=== PATIENT | male | born 1960 | race Caucasian/White ===

== ENCOUNTER 2018-07-31 20:24 | Emergency (ER) | payer OTHER, SELFPAY ==
--- NOTE | 2018-07-31 20:26 | DI.RAD.S_ITS ---
PROCEDURE: XR CHEST 1V INDICATIONS: chest pain TECHNIQUE: One view of the chest was acquired. COMPARISON: [facility], CHEST 1 VIEW, 09/24/2017, 13:28. [facility], CHEST 1 VIEW, 09/24/2017, 12:34. [facility], CHEST FOR PICC PLACEMENT, 09/23/2017, 15:24. [facility], CHEST 1 VIEW, 09/22/2017, 21:52. FINDINGS: Surgical changes and devices: None. Lungs and pleura: No pleural effusions or pneumothorax. Interval decrease in diffuse bilateral perihilar reticular opacities. Mediastinum: Mediastinal contours appear normal. Heart size is normal. Bones and chest wall: Acute lateral left seventh and eighth rib fractures. Overlying soft tissues appear unremarkable. IMPRESSION: #1. Acute lateral left seventh and eighth rib fractures. #2. Interval improvement in diffuse bilateral perihilar reticular opacities, likely representing interval improvement in underlying pulmonary edema. Findings discussed with the ordering provider Dr. Dagoberto Araujo at approximately 9:50 pm on 07/31/[address] Lee. Dictated by: Babak Lee M.D. on 07/31/2018 at 21:48 Approved by: Babak Lee M.D. on 07/31/2018 at 22:07
[2018-07-31 20:31] VITALS: BP 111/68; PULSE 80; RESP 15; TEMP 36.6; O2SAT 98
[2018-07-31 20:49] LABS: Add Manual Diff / Slide Review NO; Basophils Percent Auto 0.9 % (0-2); Eosinophils Percent Auto 0.7 % (2-4); Hematocrit 35.8 % (41-53); Hemoglobin 12.9 g/dL (13.5-17.5); Lymphocytes Percent Auto 19.2 % (25-40); Mean Corpuscular HGB Conc 36.1 % (30-36); Mean Corpuscular Hemoglobin 36.6 PG (26-34); Mean Corpuscular Volume 101.5 fL (80-100); Monocytes Percent Auto 9.1 % (3-14); Neutrophils Absolute Auto 6600 /uL (3000-5900); Neutrophils Percent Auto 70.1 % (50-75); Platelet Count 177 X10^3/uL (150-400); Red Blood Cell Count 3.53 X10^6/uL (4.5-5.9); Red Cell Distribution Width 12.5 % (11.6-14.8); White Blood Cell Count 9.5 X10^3/uL (4.5-11.0)
[2018-07-31 20:55] LABS: INR 1.1 (0.9-1.3); Prothrombin Time 12.2 SECONDS (10.1-12.7)
[2018-07-31 20:58] LABS: PTT Partial Thromboplastin Tim 24 SECONDS (26.4-36.2)
[2018-07-31 21:00] VITALS: BP 95/60; PULSE 78
[2018-07-31 21:01] LABS: Alanine Aminotransferase 17 IU/L (21-72); Albumin 4.1 g/dL (3.5-5.0); Albumin Globulin Ratio 1.7 (1.0-2.8); Alkaline Phosphatase 61 U/L (38-126); Aspartate Aminotransferase 24 IU/L (17-59); BUN Creatinine Ratio 17.7 (6-22); Bilirubin Total 1.2 mg/dL (0.2-1.3); Blood Urea Nitrogen 23 mg/dL (9-20); Calcium 8.8 mg/dL (8.4-10.2); Carbon Dioxide 23 mmol/L (22-32); Chloride 98 mmol/L (98-107); Creatine Kinase 97 U/L (55-170); Estimated Glomerular Filt Rate 56.5 mL/min (>60); Globulin 2.4 g/dL (1.7-4.1); Glucose 112 mg/dL (70-100); HEMOLYSIS < 15 (0-50); Lipase 112 U/L (23-300); Potassium 3.6 mmol/L (3.4-5.1); Sodium 133 mmol/L (137-145); Total Protein 6.5 g/dL (6.3-8.2)
[2018-07-31 21:13] LABS: Troponin I < 0.012 ng/mL (0.01-0.034)
[2018-07-31 21:45] VITALS: BP 105/66; PULSE 78
[2018-07-31 21:46] VITALS: BP 101/68; BP 104/62; BP 105/66; PULSE 71; PULSE 74; PULSE 76
[2018-07-31 22:42] VITALS: BP 132/74; PULSE 95; RESP 18; TEMP 36.7; O2SAT 97
--- NOTE | 2018-08-01 02:13 | ED_ITS ---
HPI - Syncope General Chief Complaint: Dizziness Stated Complaint: syncope Time Seen by Provider: 07/31/18 20:26 Source: patient and EMS Mode of arrival: EMS Limitations: no limitations History of Present Illness HPI narrative: a 57-year-old hypertensive nonsmoker presents by EMS for evaluation a syncopal episode just prior to arrival. he was sitting at the dinner table and had a bit more to drink than normal and started feeling a bit flushed and attempted to stand up and then had a syncopal episode, falling forward onto the table. he admittedly had very little water over the course of the day and was quite active his well and did not eat dinner until late in the day. On arrival EMS found his blood pressure to be in the mid 70s, he was given an IV by arrival had nearly completed a bag of saline and felt near complete resolution of his symptoms. He did complain of some left-sided rib pain from the fall but denies any chest pain, shortness of breath or hemoptysis. He has had this happen before under similar circumstances. he denies any head, neck or back pain. Related Data Home Medications Medication Instructions Recorded Confirmed lisinopril 20 mg PO QDAY #0 12/22/16 varenicline [Chantix] 0.5 mg PO BID #0 09/11/17 Previous Rx's Medication Instructions Recorded omeprazole 20 mg PO BID #60 cap 02/17/17 tamsulosin [Flomax] 0.4 mg PO QDAY #20 cap 09/29/17 Allergies Allergy/AdvReac Type Severity Reaction Status Date / Time No Known Drug Allergies Allergy Unknown Unverified 02/11/18 12:27 [NO KNOWN DRUG ALLERGIES] NUTS Allergy Severe face Uncoded 02/11/18 12:27 swelling Review of Systems Review of Systems All systems reviewed & are unremarkable except as noted in HPI and below Constitutional Denies chills, Denies fever(s), Denies lethargy and Denies weakness Eyes Denies change in vision, Denies eye discharge, Denies irritation and Denies loss of vision ENT Ears, Nose, Mouth, and Throat: Denies change in voice, Denies neck pain and Denies sore throat Cardiovascular Reports chest pain, Reports syncope, Denies irregular heart rhythm, Denies lightheadedness, Denies palpitations, Denies dyspnea, Denies dyspnea on exertion and Denies orthopnea Respiratory Denies cough, Denies dyspnea, Denies dyspnea on exertion and Denies wheezing Gastrointestinal Gastrointestinal: Denies abdominal pain, Denies change in bowel habits, Denies diarrhea, Denies nausea and Denies vomiting Genitourinary Denies hematuria, Denies flank pain, Denies urinary incontinence and Denies urinary urgency Musculoskeletal Denies neck pain Integumentary/Breasts Denies pruritus, Denies erythema, Denies rash and Denies wounds Neurologic Denies confusion, Reports syncope, Denies loss of vision and Denies weakness Psychiatric Denies anxiety, Denies confusion, Denies depression, Denies homicidal ideation and Denies suicidal ideation Endocrine Denies palpitations Hematologic/Lymphatic Denies easy bruising Allergic/Immunologic Denies wheezing [facility], [facility] Social History Smoking Status: Current every day smoker Exam Narrative Exam Narrative: GENERAL: This is a well-nourished, well-developed patient, in mild distress. HEAD: Atraumatic. Normocephalic. No temporal or scalp tenderness. EYES: Pupils equal round and reactive. Extraocular motions intact. No scleral icterus. No injection or drainage. ENT: Nose without bleeding, purulent drainage or septal hematoma. Throat without erythema, tonsillar hypertrophy or exudate. Uvula midline. Airway patent. NECK: Trachea midline. No JVD or lymphadenopathy. Supple, nontender, no meningeal signs. CARDIOVASCULAR: Regular rate and rhythm without murmurs, gallops, or rubs. Patient has reproducible left-sided chest pain to palpation RESPIRATORY: Clear to auscultation. Breath sounds equal bilaterally. No wheezes , rales, or rhonchi. GASTROINTESTINAL: Abdomen soft, non-tender, nondistended. No hepato-splenomegaly , or palpable masses. No guarding. EXTREMITIES: No clubbing, cyanosis, or edema. No joint tenderness, effusion, or edema noted. BACK: Nontender without deformity or crepitance. No flank tenderness. NEURO: AOx3. SKIN: No rash or erythema. Initial Vital Signs Initial Vital Signs: Vital Signs Temperature 97.8 F 07/31/18 20:31 Pulse Rate 80 07/31/18 20:31 Respiratory Rate 15 07/31/18 20:31 Blood Pressure 111/68 07/31/18 20:31 Pulse Oximetry 98 07/31/18 20:31 Course Orders Ordered: ED Orders 07/31/18 20:26 XR chest 1V Stat EKG-12 Lead Stat 07/31/18 20:42 Complete Blood Count AUTO DIFF Stat Comprehensive Metabolic Panel Stat Lipase Stat Partial Thromboplastin Time Stat Prothrombin Time INR Stat Troponin & CK Cardiac Panel Stat Vital Signs - 8 hr 07/31/18 20:31 07/31/18 21:00 07/31/18 21:45 Temperature 97.8 F Pulse Rate 80 78 78 Pulse Rate [Orthostatic Lying] Pulse Rate [Orthostatic Sitting] Pulse Rate [Orthostatic Standing] Respiratory Rate 15 Blood Pressure 111/68 Blood Pressure [Orthostatic Lying] Blood Pressure [Orthostatic Sitting] Blood Pressure [Orthostatic Standing] Blood Pressure [Right Arm] 95/60 105/66 Pulse Oximetry 98 07/31/18 21:46 07/31/18 22:42 Temperature 98.1 F Pulse Rate 95 H Pulse Rate [Orthostatic Lying] 71 Pulse Rate [Orthostatic Sitting] 74 Pulse Rate [Orthostatic Standing] 76 Respiratory Rate 18 Blood Pressure 132/74 Blood Pressure [Orthostatic Lying] 104/62 Blood Pressure [Orthostatic Sitting] 101/68 Blood Pressure [Orthostatic Standing] 105/66 Blood Pressure [Right Arm] Pulse Oximetry 97 MDM - Syncope Differential Diagnosis Likely syncope due to orthostatic hypotension, vasovagal syncope, complete atrioventricular block, subarachnoid hemorrhage, pulmonary embolism, dehydration and other Medical Records Attestation: I reviewed the patient's medical records. Lab Data Attestation: I reviewed the patient's lab results. Result diagrams: 07/31/18 20:42 07/31/18 20:42 Lab Results 07/31/18 07/31/18 07/31/18 Range/Units 20:42 20:42 20:42 WBC 9.5 (4.5-11.0) X10^3/uL RBC 3.53 L (4.5-5.9) X10^6/uL Hgb 12.9 L (13.5-17.5) g/dL Hct 35.8 L (41-53) % MCV 101.5 H (80-100) fL MCH 36.6 H (26-34) PG MCHC 36.1 H (30-36) % RDW 12.5 (11.6-14.8) % Plt Count 177 (150-400) X10^3/uL Neut % (Auto) 70.1 (50-75) % Lymph % (Auto) 19.2 L (25-40) % [place] % (Auto) 9.1 (3-14) % Eos % (Auto) 0.7 L (2-4) % Baso % (Auto) 0.9 (0-2) % Neut # (Auto) 6600 H (0618-3501) /uL PT 12.2 (10.1-12.7) SECONDS INR 1.1 (0.9-1.3) APTT 24 L (26.4-36.2) SECONDS Sodium 133 L (137-145) mmol/L Potassium 3.6 (3.4-5.1) mmol/L Chloride 98 (98-107) mmol/L Carbon Dioxide 23 (22-32) mmol/L BUN 23 H (9-20) mg/dL Creatinine 1.30 H (0.66-1.25) mg/dL Estimated GFR 56.5 L (>60) mL/min BUN/Creatinine Ratio 17.7 (6-22) Glucose 112 H (70-100) mg/dL Calcium 8.8 (8.4-10.2) mg/dL Total Bilirubin 1.2 (0.2-1.3) mg/dL AST 24 (17-59) IU/L ALT 17 L (21-72) IU/L Alkaline Phosphatase 61 (38-126) U/L Total Creatine Kinase 97 (55-170) U/L CK-MB (CK-2) TNP CK-MB (CK-2) Rel Index TNP Troponin I < 0.012 (0.01-0.034) ng/mL Total Protein 6.5 (6.3-8.2) g/dL Albumin 4.1 (3.5-5.0) g/dL Globulin 2.4 (1.7-4.1) g/dL Albumin/Globulin Ratio 1.7 (1.0-2.8) Lipase 112 (23-300) U/L ECG Data Attestation: I personally reviewed and interpreted this ECG as follows: Prior ECG tracings: not available for review Interpretation: normal sinus rhythm without signs of ectopy or ischemia MDM Narrative Medical decision making narrative: patient with syncope is asymptomatic for duration of visit. He felt total relief after administration of fluids. He admits to not drinking any water and having more alcohol than normal on an empty stomach. Orthostatic vital signs are normal and patient ambulates without difficulty. Discharge Plan Departure Patient Disposition: Home Clinical Impression: Syncope, Acute dehydration Discharge Date/Time: 07/31/18 22:45 Interventions: ED Discharge Assessment Last Done: 07/31/18 22:42 Instructions: DI for Syncope in Adults (Fainting) Activity Restrictions/Additional Instructions: *You have been diagnosed with [ acute dehydration and syncope ] *What to do: *Take medications as directed. drink plenty of fluids. Avoid alcoholic beverages. Be sure to eat full meal *Follow up with your primary care provider in 2-3 days, call for an appointment. Let them know you were seen in the Emergency Department and that we ask that you be seen in follow up *Return to ER if you should have any new, worsening or concerning symptoms Prescriptions: No Action lisinopril 20 MG tablet 20 mg PO QDAY Qty: 0 RF: 0 omeprazole 20 MG capsule,delayed release(DR/EC) 20 mg PO BID Qty: 60 RF: 0 varenicline [Chantix] 0.5 MG tablet 0.5 mg PO BID Qty: 0 RF: 0 tamsulosin [Flomax] 0.4 MG capsule,extended release 24hr 0.4 mg PO QDAY Qty: 20 RF: 0 Referrals: Leonel Pascual MD [Primary Care Provider] -
== END 2018-07-31 22:45 | disposition home or self-care (01) ==
PROVIDERS: Emergency Provider Emergency Medicine; Family Provider Family Medicine; PCP Family Medicine
DX: E86.0 Dehydration (principal); R55 Syncope and collapse
CPT/HCPCS: 36415; 71045; 80053; 82550; 83690; 84484; 85025; 85610; 85730; 93005; 99283; 99285

== ENCOUNTER → 2019-12-16 13:17 | Outpatient (CLI) | payer OTHER, SELFPAY ==
--- NOTE | 2019-12-16 | DI.RAD.S_ITS ---
PROCEDURE: XR LUMBAR SPINE 2-3V INDICATIONS: LUMBAR DISC DISEASE TECHNIQUE: 3 views of the lumbar spine were acquired. COMPARISON: None. FINDINGS: Bones: No fracture or focal osseous destruction. Multilevel degenerative endplate sclerosis and spurring. Diffuse facet arthropathy. Straightening of the normal lordotic curvature. Dextroscoliosis centered at L2. Diffuse moderate narrowing of the lumbar disc spaces Soft tissues: Overlying bowel gas pattern is normal. No suspicious soft tissue calcifications. IMPRESSION: Dextroscoliosis Moderate diffuse lumbar spondylosis and facet arthropathy Dictated by: Jeremias Tirado M.D. on 12/16/2019 at 17:47 Approved by: Jeremias Tirado M.D. on 12/16/2019 at 17:48
== END ==
PROVIDERS: Family Provider Family Medicine; PCP Family Medicine; Referring Provider Family Medicine; Visit Provider Family Medicine
DX: M51.16 Intervertebral disc disorders with radiculopathy, lumbar region (principal); M47.26 Other spondylosis with radiculopathy, lumbar region
CPT/HCPCS: 72100

== ENCOUNTER → 2021-01-23 16:54 | Outpatient (CLI) | payer OTHER, SELFPAY ==
[2021-01-23] MEDS: COVID-19 VACC #1, MRNA(MOD) 100 MCG/0.5 ML VIAL IM (17:02)
== END ==
PROVIDERS: Visit Provider Internal Medicine
DX: Z23 Encounter for immunization (principal)
CPT/HCPCS: 0011A; 91301

== ENCOUNTER → 2021-02-21 09:23 | Outpatient (CLI) | payer OTHER, SELFPAY ==
[2021-02-21] MEDS: COVID-19 VACC #2, MRNA(MOD) 100 MCG/0.5 ML VIAL IM (09:32)
== END ==
PROVIDERS: Visit Provider Internal Medicine
DX: Z23 Encounter for immunization (principal)
CPT/HCPCS: 0012A; 91301

== ENCOUNTER → 2021-05-24 08:34 | Outpatient (CLI) | payer OTHER, SELFPAY ==
[2021-05-24 10:45] LABS: COVID19 -Nasal RAPID Negative (Negative)
== END ==
PROVIDERS: PCP Family Medicine; Referring Provider Specialist; Visit Provider Specialist
DX: Z20.822 Contact with and (suspected) exposure to COVID-19 (principal)
CPT/HCPCS: 87635; C9803

== ENCOUNTER 2021-05-25 06:31 | Day surgery (SDC) | payer OTHER, SELFPAY ==
--- NOTE | 2021-05-25 | PATH_ITS ---
[facility] Accession Number: [id number] . 01 Material submitted: . PART A: colon - POLYP @ 80CM PART B: colon - POLYPS @ 25CM . 02 Diagnosis: A. Colon, Polyp at 80 cm, Biopsy: Sessile serrated adenoma. . B. Colon, Polyps at 25 cm, Biopsies: Hyperplastic polyps. [facility] 05/30/2021 1615 Local . 02 Electronically signed: . Tatum Allen MD, Pathologist NPI- [id number] . 01 Gross description: . Part A: POLYP @ 80CM: Received in formalin is 1 fragment(s) of motley, soft tissue measuring 0.9 x 0.7 x 0.5 cm submitted entirely in 1 cassette(s) Part B: POLYPS @ 25CM: Received in formalin are multiple fragment(s) of motley, soft tissue measuring 2.6 x 1.1 x 0.4 cm in aggregate submitted entirely in 1 cassette(s) /ERICKA 05/26/2021 0455 Local . 02 Pathologist provided ICD-10: D12.6 . 02 CPT . 549638, [id number] Performed at: 01 [facility] [address], [place], [place] [id number] MD Andre Eaton MD Phone: [phone] Performed at: 02 [facility] [address] [place], [place] [id number] MD Tatum Allen MD Phone: [phone]
[2021-05-25 07:05] VITALS: BP 126/81; PULSE 88; RESP 16; TEMP 36.7; O2SAT 98; BMI 22.1
[2021-05-25] MEDS: LACTATED RINGERS 1,000 ML 42 ML IV (07:19)
[2021-05-25 07:20] VITALS: BMI 22.1
--- NOTE | 2021-05-25 07:38 | PM.HP.1 ---
History of Present Illness History of Present Illness Chief complaint: [facility] [place] Narrative: The patient is a gentleman who had and a benign polyp resected from his sigmoid colon. Is been about 4 years since his last colonoscopy. He was actually advised to have 1 at 3 years due to the nature of this polyp in the last colonoscopy being poorly prepped. He is here for colonoscopy. His prep went well he said. Patient History Medical History (Updated 05/25/21 @ 07:40 by Spencer Mendoza MD) Hypertension Surgical History (Updated 05/25/21 @ 07:41 by Spencer Mendoza MD) Status post colon resection Family & Social History Social History: household members spouse Tobacco & Substance use: Tobacco type cigarettes Smoking Status Current every day smoker Smoking packs per day 1 alcohol intake current alcohol intake frequency 3 or more drinks per day Substance Use Type does not use Meds Home Medications and Allergies Home Medications Medication Instructions Recorded Confirmed Type lisinopril 20 mg tablet 20 mg PO QDAY #0 12/22/16 05/25/21 History metoprolol succinate 100 mg 100 mg PO DAILY 05/25/21 05/25/21 History tablet,extended release 24 hr Allergies Allergy/AdvReac Type Severity Reaction Status Date / Time No Known Drug Allergies Allergy Unknown Verified 05/25/21 07:15 [NO KNOWN DRUG ALLERGIES] NUTS Allergy Severe face Uncoded 05/25/21 07:15 swelling Review of Systems Review of Systems Narrative: All systems negative Exam Vital Signs (past 8 hours): - 05/25/21 07:05 Temperature 98.0 F Pulse Rate 88 Respiratory Rate 16 Blood Pressure 126/81 Pulse Oximetry 98 Oxygen Delivery Method Room Air Narrative Exam Narrative: Pleasant cooperative patient no apparent distress. Lungs are clear to auscultation. No rales or rhonchi. Heart regular rate and rhythm no murmur gallop. Abdomen is soft nontender without mass. No obvious hernias. Patient is alert and oriented x3. Assessment & Plan Assessment and plan (1) Status post colon resection: Problem details: Sigmoid due to a large benign polyp Status: Acute Assessment & Plan narrative: I have discussed the procedure and the rationale with the patient including risks of bleeding, perforation which would necessitate a major operation, failure to find remove all lesions and the potential to tattoo. They appeared to understand and wished to proceed.
--- NOTE | 2021-05-25 07:41 | PM.PREOP ---
Pre-operative Note COVID-19 COVID-19 status: Negative Result date/Date tested (Pos, Neg/Pending): 05/24/21 Interval Note History & Physical reviewed/Exam performed by Physician: Yes Changes to H&P: No H&P completed within 30 days and has changed as indicated here:: Anesthesia will be involved due to the difficulty with this last colonoscopy in providing adequate conscious sedation.
--- NOTE | 2021-05-25 09:04 | PM.OP.ENDO ---
Operative Date/Time/Diagnoses Date of procedure: 05/25/21 Time of procedure: 09:04 Pre-op diagnosis: History of a large benign polyp resected. Last colonoscopy was 4 years ago. He is 1 year overdue. Post-op diagnosis: same (Numerous polyps. Diverticulosis. Unable to reach the cecum.) Procedure & Clinicians Study performed: Colonoscopy to the area of the hepatic flexure. Hot snare polypectomy. Cold biopsies. Same procedure as scheduled: Yes Indications: Personal history of polyps Surgeon: Spencer Mendoza Procedure Notes SCOAP/Timeout: Performed Procedure in detail: The patient was placed in the left lateral decubitus position and underwent IV sedation directed by the surgeon consisting of fentanyl and Versed. Digital exam was unremarkable. His prostate is flat.. The scope was inserted and advanced through the rectum into the sigmoid, descending, and transverse colon. Despite multiple maneuvers I could not get beyond this point. There was a flat lesion which I snared and pieces and cauterized the remainder. The scope was gradually brought out. Multiple polyps were found Polyps were found at 80 cm from the anal verge in at 25 cm from the anal verge. Some of these were removed with hot snares. Somewhat very tiny and were cauterized. Some will removed with cold biopsy forceps. There were greater than 10 lesions ultimately removed.. The scope was slowly brought through the anal canal. There was scarring but no other findings. The scope was removed and the patient tolerated the procedure well. The prep was very good. Scope withdrawal time: Not applicable Sedation minutes: 0 (Patient underwent deep sedation with anesthesia available due to prior experience in scoping him. He was unable to tolerate moderate sedation.) Findings: diverticulosis and polyp (Multiple) Specimen(s): other (Multiple polyps) Complications: none Post-procedure Recommendations: Colonscopy in 1 year and Other recommendation (You need a barium enema to evaluate her right colon as I could not reach it with the scope.) Plan for aftercare: Follow-up by phone after barium enema Disposition: PACU
[2021-05-25 09:05] VITALS: BP 80/40; PULSE 67; RESP 16; TEMP 36.4; O2SAT 98
[2021-05-25 09:10] VITALS: BP 71/40; PULSE 71; RESP 12; O2SAT 98
[2021-05-25 09:15] VITALS: BP 87/52; PULSE 74; RESP 16; O2SAT 98
[2021-05-25 09:30] VITALS: BP 91/50; PULSE 72; RESP 16; TEMP 36.4; O2SAT 98
[2021-05-25 09:46] VITALS: BP 93/58; PULSE 71; RESP 16; TEMP 36.3; O2SAT 98
--- NOTE | 2021-05-25 09:48 | SUR.PHASEII ---
Charted vital signs and IV removal for Denae MIMS.
== END 2021-05-25 10:01 | disposition home or self-care (01) ==
PROVIDERS: PCP Family Medicine; Referring Provider Specialist; Visit Provider Specialist
PROC: 0DJD8ZZ Inspection of Lower Intestinal Tract, Via Natural or Artificial Opening Endoscopic (ICD-10-PCS; CPT 45378; principal; 2021-05-25 07:45)
DX: Z12.11 Encounter for screening for malignant neoplasm of colon (principal); Z86.010 Personal history of colon polyps; K57.30 Diverticulosis of large intestine without perforation or abscess without bleeding; D12.6 Benign neoplasm of colon, unspecified
CPT/HCPCS: 45338; 45331

== ENCOUNTER → 2021-06-20 09:32 | Outpatient (CLI) | payer OTHER, SELFPAY ==
--- NOTE | 2021-06-20 09:33 | DI.RAD.S_ITS ---
PROCEDURE: FL BARIUM ENEMA W AIR CONTRAST INDICATIONS: evaluate right colon for lesions COMPARISON: None. FINDINGS: KUB: Pre-procedural integrated marketing manager film demonstrates a normal bowel gas pattern. No suspicious abdominal calcifications. Visualized solid organ contours are normal in size. No suspicious bony lesions. Colon: There is markedly tortuous appearance of the colon. There is suboptimal air-contrast opacification of the proximal right colon. Unclear if the cecum is definitely visualized. Elsewhere, no definite strictures, ulcers, polyps, or masses are seen. Haustral folds are normal in thickness throughout. Scattered colonic diverticula. IMPRESSION: Markedly tortuous colon, resulting in suboptimal evaluation of the proximal right segment. Scattered colonic diverticula. Dictated by: Jeremias Tirado M.D. on 06/20/2021 at 12:40 Approved by: Jeremias Tirado M.D. on 06/20/2021 at 12:42
== END ==
PROVIDERS: PCP Family Medicine; Referring Provider Specialist; Visit Provider Specialist
DX: K57.90 Diverticulosis of intestine, part unspecified, without perforation or abscess without bleeding (principal); Z12.11 Encounter for screening for malignant neoplasm of colon; Z90.49 Acquired absence of other specified parts of digestive tract
CPT/HCPCS: 74280

== ENCOUNTER → 2024-03-27 10:41 | Outpatient (CLI) | payer MEDICARE, OTHER, SELFPAY ==
--- NOTE | 2024-03-27 10:45 | DI.US.S_ITS ---
PROCEDURE: US ABD AORTA ANEURYSM SCREEN INDICATIONS: AAA SCREENING TECHNIQUE: Real time scanning was performed of the aorta and iliac arteries, with image documentation. COMPARISON: None. FINDINGS: Aorta: Proximal aortic diameter measures 2.4 x 2.2 cm. Mid-aorta measures 1.9 x 1 point cm. Distal aortic diameter is 1.7 x 1 point cm. Iliac arteries: Right common iliac artery measures 1.1 cm. Left common iliac artery measures 1.1 cm. IMPRESSION: Stable interval exam demonstrating no aneurysmal dilation. Dictated by: Margareth Collins M.D. on 03/28/2024 at 16:01 Approved by: Margareth Collins M.D. on 03/28/2024 at 16:02
--- NOTE | 2024-03-27 10:45 | DI.CT.S_ITS ---
PROCEDURE: CT LUNG LOW DOSE SCREENING INDICATIONS: AAA SCREENING TECHNIQUE: Noncontrast 2.0-2.5 mm thick sections acquired from the pulmonary apices to the posterior costophrenic angles. 7 mm thick axial MIP, and 5 mm coronal and sagittal reformats were then acquired. For radiation dose reduction, the following was used: automated exposure control, adjustment of mA and/or kV according to patient size. COMPARISON: [facility], CT, PE STUDY (CTA CHEST), 09/21/2017, 9:51. FINDINGS: Image quality: Diagnostic. Lower Neck: No enlarged lymph nodes. Thyroid: No thyroid nodules which require sonographic follow up, per consensus guidelines. Axillae: No enlarged lymph nodes. Chest Wall: Unremarkable. Bones: Unremarkable. Lungs and Pleura: No pneumothorax or pleural effusions. 3 mm lateral left lower lobe nodule series 3, image 270, new compared to 2017. Heart: Heart size is normal. No pericardial effusion. Thoracic Vessels: The aorta and pulmonary arteries demonstrate normal size. Mediastinum and Roseanne: No enlarged lymph nodes. Esophagus: No wall thickening. Minimal hiatal hernia. Upper Abdomen: Visualized upper abdomen solid organs and bowel loops appear normal. IMPRESSION: 3 mm left lower lobe nodule, new compared to 2017. LUNG-RADS 2; continued annual screening, if eligible. Clinically Significant Non-pulmonary Findings: None. Dictated by: Margareth Collins M.D. on 03/29/2024 at 0:24 Approved by: Margareth Collins M.D. on 03/29/2024 at 0:28
== END ==
LOC: CT 10:44
PROVIDERS: PCP Internal Medicine; Referring Provider Family Medicine; Visit Provider Family Medicine
DX: R91.1 Solitary pulmonary nodule (principal); Z13.6 Encounter for screening for cardiovascular disorders; Z12.2 Encounter for screening for malignant neoplasm of respiratory organs; F17.210 Nicotine dependence, cigarettes, uncomplicated
CPT/HCPCS: 71271; 76706

== ENCOUNTER → 2024-07-03 09:35 | Outpatient (CLI) | payer MEDICARE, OTHER, SELFPAY ==
--- NOTE | 2024-07-03 09:37 | DI.CT.S_ITS ---
PROCEDURE: CT CHEST WO CON INDICATIONS: LUNG NODULE FOLLOW UP TECHNIQUE: Noncontrast 5 mm thick sections acquired from the pulmonary apices to the posterior costophrenic angles. 1 mm lung window, 5 mm thick coronal and sagittal and 7 mm axial MIP reformats were then acquired. For radiation dose reduction, the following was used: automated exposure control, adjustment of mA and/or kV according to patient size. COMPARISON: [facility], CT, PE STUDY (CTA CHEST), 09/21/2017, 9:51. [facility], CT, CT LUNG LOW DOSE SCREENING, 03/27/2024, 10:56. FINDINGS: Image quality: Diagnostic. Lower Neck: No enlarged lymph nodes. Thyroid: No thyroid nodules which require sonographic follow up, per consensus guidelines. Axillae: No enlarged lymph nodes. Chest Wall: Unremarkable. Bones: No acute fractures. No aggressive appearing lytic or blastic osseous lesions. Mild multilevel degenerative changes of the spine.. Lungs and Pleura: No pneumothorax or pleural effusions. Compared to CT chest dated March 27, 2024, no new or enlarging solid pulmonary nodule or consolidation. Stable left lateral lower lobe solid, noncalcified pulmonary nodule measuring 3 mm (3/273). Similar appearance of right upper lobe linear atelectasis/scar (3/133) and in the apical segment of the right lower lobe (3/172). Severe apical predominant centrilobular and paraseptal emphysema. Biapical pleural parenchymal scarring. Patent central airways. Heart: Heart size is normal. No pericardial effusion. Thoracic Vessels: Ascending thoracic aorta is borderline ectatic measuring 4 x 3.9 cm, stable. Minimal calcification of the thoracic aorta. Pulmonary artery is normal in caliber. Mediastinum and Roseanne: No enlarged lymph nodes. Esophagus: No wall thickening. No hiatal hernia. Upper Abdomen: Mild calcification of the abdominal aorta. Mild perinephric fat stranding bilaterally, likely senescent. IMPRESSION: 1. Compared to CT chest dated March 27, 2024, no new or enlarging solid pulmonary nodule or consolidation. Stable left lateral lower lobe solid, noncalcified pulmonary nodule measuring 3 mm. LUNG-RADS 2: Continue annual screening, if eligible. 2. Severe emphysema with right lung linear atelectasis/scar which is stable. 3. Ascending thoracic aorta is borderline ectatic measuring 4 x 3.9 cm, stable. Dictated by: Blanca Cox M.D. on 07/08/2024 at 10:00 Approved by: Blanca Cox M.D. on 07/08/2024 at 11:02
== END ==
PROVIDERS: PCP Internal Medicine; Referring Provider Internal Medicine; Visit Provider Internal Medicine
DX: R91.1 Solitary pulmonary nodule (principal); J43.8 Other emphysema; J98.11 Atelectasis
CPT/HCPCS: 71250